=== PATIENT | female | born 1980 | race Caucasian/White ===

== ENCOUNTER 2018-09-13 09:17 | Emergency (ER) | payer OTHER ==
--- NOTE | 2018-09-13 10:32 | RAD ---
RIGHT KNEE 4 VIEWS: Date: 09/13/18 HISTORY: Right knee pain. FINDINGS/IMPRESSION: No fracture, dislocation, or bony destruction is seen. There is fullness in the suprapatellar pouch s uggestive of a joint effusion. Tiny patellar osteophytes are present. POS: [facility]
--- NOTE | 2018-09-13 11:37 | CT ---
CT CERVICAL SPINE: Multiple axial tomograms were obtained through the cervical spine with multiplanar reconstruction. INDICATION: Seizure. Fall with injury to neck. FINDINGS: Cervical vertebrae maintain normal height and alignment. Disk spaces are maintained. No evidence of cervical spine fracture. IMPRESSION: No evidence of cervical spine fracture. POS: [facility]
--- NOTE | 2018-09-13 11:48 | CT ---
CHEST AND ABDOMEN AND PELVIC CT SCAN WITH IV CONTRAST: Date: 09/13/18 HISTORY: Grand mal seizure, fell on right side with pain to body. FINDINGS: IV contrast was injected in the right foot with very minimal contrast within the vascular tree. The m ediastinum is unremarkable. The aorta appears unremarkable. No evidence for pneumothorax or pleural e ffusion. No pericardial effusion. Small hiatal hernia. Evaluation of the abdomen is limited because of very large body habitus. The liver, gallbladder, panc reas, and spleen are unremarkable with two small accessory spleens. Adrenal glands are unremarkable. There is some concentrated contrast within the renal collecting systems without evidence for obstruct ion. No evidence for intraperitoneal fluid. No retroperitoneal hematoma. Visualized appendix is unrem arkable. Urinary bladder is unremarkable. Pelvis and adnexal regions appear unremarkable. IMPRESSION: Somewhat limited scan because of contrast bolus, as well as patient's very large body habitus. No sig nificant acute post-traumatic process in the chest, abdomen, or pelvis. Small hiatal hernia. POS: [facility]
[2018-09-13 12:36] LABS: BHCG - Serum Negative (NEGATIVE); Pregs Control Background? CLEAR/WHITE (CLR/WHITE); Pregs Control Bar Appear? YES (CONTROL BAR)
== END 2018-09-13 12:30 | disposition home or self-care (01) ==
LOC: ERS 09:17
DX: R56.9 Unspecified convulsions (principal); M79.10 Myalgia, unspecified site; F41.9 Anxiety disorder, unspecified; E11.9 Type 2 diabetes mellitus without complications; Z79.899 Other long term (current) drug therapy
CPT/HCPCS: 36415; 71260; 72125; 74177; 80177; 84703

== ENCOUNTER 2018-09-18 15:00 | Emergency (ER) | payer OTHER ==
--- NOTE | 2018-09-18 15:41 | CT ---
CT cervical spine noncontrast HISTORY: Fall. Neck injury. COMPARISON: 09/13/2018. FINDINGS: Vertebral body heights and alignment are maintained. Cervicothoracic junction is intact. No acute fracture or dislocation. IMPRESSION: No acute osseous abnormalities are demonstrated.
--- NOTE | 2018-09-18 15:54 | CT ---
CT BRAIN WITHOUT CONTRAST: HISTORY: Seizure and fall. FINDINGS: No evidence of acute infarct, hemorrhage, midline shift, or abnormal extraaxial fluid collections are seen. The ventricular size is normal and the basilar cisterns patent. The bony calvarium is intact . The visualized paranasal sinuses and mastoid air cells are well aerated. There is a 1 cm calcific density in the medial aspect of the left middle cranial fossa which may represent a calcified mening ioma. The visualized paranasal sinuses and mastoid air cells are well aerated. IMPRESSION: No CT evidence of acute intracranial process. POS: [facility]
[2018-09-18 16:05] LABS: #Basophils 0.1 thou/uL (0.0-0.2); #Eosinphils 0.1 thou/uL (0.0-0.7); #Lymphocytes 2.2 thou/uL (1.20-3.40); #Monocytes 0.6 thou/uL (0.11-0.59); #Neutrophils 8.4 thou/uL (1.40-6.50); %Basophils 0.6 % (0.0-1.0); %Eosinophils 0.7 % (0.0-10.0); %Monocytes 5.3 % (0.0-10.0); %Neutrophils 74.3 % (42.0-75.0); Hemoglobin 14.2 g/dL (12.0-16.0); Mean Corpuscular HGB CONC 33.7 g/dL (32.0-36.0); Mean Corpuscular Hemoglobin 30.1 pg (27.0-31.0); Mean Corpuscular Volume 89.4 fL (78.0-98.0); Mean Platelet Volume 8.2 fL (7.4-10.4); RBC Distribution Width 12.6 % (11.5-14.5); Red Blood Cell (RBC) Count 4.71 mill/uL (4.20-5.40); White Blood Cell (WBC) Count 11.3 thou/uL (4.8-10.8)
[2018-09-18 16:18] LABS: MDiff Complete? YES; Platelet Clumps SLIGHT; Platelet Morphology Comment PLT clumps seen-ADEQ; RBC Morphology Normal
[2018-09-18 16:35] LABS: Bilirubin Negative (Negative); Blood, Urine Negative (Negative); Clarity CLOUDY (Clear); Glucose, Urine (Dipstick) Negative (Negative); Leukocyte Negative (Negative); Nitrite Negative (Negative); Protein, Urine (Dipstick) Negative (Neg-Trace); Specific Gravity, Urine 1.012 (1.002-1.036); Urobilinogen 0.2 mg/dL (0.2-1.0); pH, Urine 7.5 (5.0-9.0)
[2018-09-18 16:48] LABS: ALT (SGPT) 38 U/L (8-55); AST (SGOT) 37 U/L (5-34); Albumin 4.1 g/dL (3.5-5.0); Alkaline Phosphatase 86 U/L (40-150); Anion Gap 16 mmol/L (10-20); BUN (Urea Nitrogen) 12 mg/dL (7.0-18.7); Bilirubin, Total 0.6 mg/dL (0.2-1.2); Calc. Creatinine Clearance 0 mL/min (70-130); Calcium 9.4 mg/dL (7.8-10.44); Carbon Dioxide 19 mmol/L (22-29); Chloride 110 mmol/L (98-107); Estimated GFR-MDRD 64; Globulin 3.4 g/dL (2.4-3.5); Glucose 106 mg/dL (70-105); Protein, Total 7.5 g/dL (6.0-8.3); Sodium 140 mmol/L (136-145)
== END 2018-09-18 18:30 | disposition home or self-care (01) ==
LOC: ERS 15:00
DX: R56.9 Unspecified convulsions (principal); F41.9 Anxiety disorder, unspecified; Z79.899 Other long term (current) drug therapy; E11.9 Type 2 diabetes mellitus without complications
CPT/HCPCS: 36415; 70450; 72125; 80053; 80177; 81003; 85025